=== PATIENT | male | born 1995 | race Caucasian/White ===

== ENCOUNTER 2021-07-01 14:57 | Observation (INO) | payer BC, MEDICAID, SELFPAY ==
[2021-07-01 15:10] VITALS: BP 157/96; PULSE 75; RESP 12; TEMP 36.8; O2SAT 98; BMI 33.2
--- NOTE | 2021-07-01 15:38 | ED.C_ITS ---
Documented by User: Yvette Gallagher PA-C 07/01/21 15:57 HPI - Psych General: Chief Complaint: Psychiatric Symptoms Stated Complaint: DEPRESSION Time Seen by Provider: 07/01/21 15:21 Source: patient Mode of arrival: EMS Limitations: no limitations History of Present Illness: HPI Narrative: 25-year-old male presents to the ER via EMS after verbal altercation with his where he threatened to kill himself. Patient reports he and his about 1 week ago and today she said she was going to go through the divorce. Patient reports during the argument he threatened to kill himself. Patient reports his then called family and the auto electrical technician who took patient to [facility] and told him they were going to 96 him. Patient told family he would voluntarily admit himself for evaluation versus being forced to. Patient reports he is not suicidal but said that out of anger. Patient reports he has had multiple chances to hurt himself but never would because he has 2 children to live for. Patient reports his father did remove all guns from the home however his family feels he needs evaluated anyway. Patient consents to safety at this time. Patient denies any history of depression. Patient does admit he has not slept in days but just due to his stressful situation. Patient would like to talk to someone about the rough time he is going through. MD complaint: feels depressed Onset (ago): week(s) Duration: intermittent History of same: No Context: significant life stressor Associated psychiatric symptoms: suicidal ideation Treatments prior to arrival: none Details of plan: denies a plan Review of Systems General: Reports: 10 or more systems reviewed and unremarkable except in HPI and below Physical Exam Const: COMMON NORMALS: no acute distress, average body habitus and patient oriented x3 GENERAL APPEARANCE: cooperative and comfortable HENMT: COMMON NORMALS: normocephalic HEAD & SCALP: normocephalic Eye: COMMON NORMALS: conjunctivae normal CONJUNCTIVA: Yes conjunctivae normal Neck/C-Spine: COMMON NORMALS: full ROM and no lymphadenopathy Resp: COMMON NORMALS: normal respiratory effort, No retractions and clear to auscultation bilaterally AUSCULTATION: clear to auscultation bilaterally, no rales, no rhonchi and no wheezes Cardio: COMMON NORMALS: regular rate and regular rhythm RATE: regular rate RHYTHM: regular rhythm GI: COMMON NORMALS: Normal to inspection, nondistended, normoactive bowel sounds present, Soft to palpation and non-tender PALPATION: Yes Soft to palpation Extremity: COMMON NORMALS: normal to inspection and full ROM Neuro: COMMON NORMALS: patient oriented x3, moves all extremities, no sensory deficits noted and gait normal Psych: COMMON NORMALS: mental status grossly normal, Normal thought process present, cooperative and normal affect ATTITUDE: No agitated and No aggressive THOUGHT PROCESS: Normal thought process present Skin: COMMON NORMALS: no rashes or lesions noted and no wounds GENERAL SKIN EXAM: no rashes or lesions noted Course ED course: Patient presents to the ER via EMS to be evaluated for depression. Patient made suicidal statements to his whom he was in an argument with. Patient denies suicidal ideation at this time but is willing to admit himself. Labs will be done and will speak with psychiatry. Consultations: Consultation #1: I spoke with Dr. Workman regarding this patient. Patient is willing to voluntarily admit himself and would like to talk to someone as he is dealing with a lot of stress in his life. Dr. Workman agrees to admission for this patient. Psych care set place. Time: 15:38 Vital Signs: Vital signs: Vital Signs Temperature 98 F 07/02/21 16:42 Pulse Rate 78 07/02/21 16:42 Respiratory Rate 18 07/02/21 16:42 Blood Pressure 143/87 07/02/21 16:42 Pulse Oximetry 97 07/02/21 16:42 MDM - Psych MDM Narrative: Medical decision making narrative: 25-year-old male presents to the ER via EMS after making suicidal statements to his . Patient has have been for the last week or so and during an argument patient said he might as well just kill himself. Patient's family and called the auto electrical technician and patient told his family he would voluntarily admit himself versus being forced. Patient denies suicidal thoughts at this time but does admit that he made the comments. Patient denies a plan. Patient reports he would never hurt himself because he has 2 children. Patient reports his family did take all the guns out of the home however they still would like him admitted to be evaluated. Patient does admit to not sleeping well for the last several days due to increased stressors in his life. Patient has no history of depression. We will do labs for admission. I did speak with Dr. Workman who agrees to accept the patient for evaluation. Patient does agree to voluntarily admit himself. Spoke with Dr. Gardner who will put in admission orders. Lab Data: Labs: Lab Results 07/01/21 07/01/21 07/01/21 16:00 16:00 16:30 WBC 13.7 10^3/uL H 10 ^3/uL (4.0-10.0) RBC 5.58 10^6/uL H 10 ^6/uL (4.1-5.3) Hgb 16.3 g/dL g/dL (11.7-16.6) Hct 48.8 % % (42.0-52.0) MCV 87.5 fl fl (80-94) MCH 29.2 pg pg (28.0-34.0) MCHC 33.4 g/dL g/dL (30.0-36.0) RDW 11.5 % L % (12.1-15.1) Plt Count 305 10^3/cmm 10^3 /cmm (130-400) MPV 10.5 fL H fL (7.4-10.4) Neut % (Auto) 68.5 % % Lymph % (Auto) 22.3 % % [place] % (Auto) 5.8 % % Eos % (Auto) 2.5 % % Baso % (Auto) 0.6 % % Neut # (Auto) 9.38 10^3/uL H 10 ^3/uL (1.8-7.7) Lymph # (Auto) 3.1 10^3/uL 10^3/ uL (0.8-4.8) [place] # (Auto) 0.8 10^3/uL 10^3/ uL (0.2-0.9) Eos # (Auto) 0.3 10^3/uL 10^3/ uL (0.0-0.8) Baso # (Auto) 0.1 10^3/uL 10^3/ uL (0.0-0.1) Nucleated RBC % (a uto) 0 % % Nucleated RBCs # 0.0 /100WBC /100W BC Sodium 141 mmol/L mmol/L (136-145) Potassium 4.0 mmol/L mmol/L (3.5-5.1) Chloride 106 mmol/L mmol/L (98-107) Carbon Dioxide 22 mmol/L mmol/L (22-29) Anion Gap 17.0 (5-19) BUN 8 mg/dL mg/dL (6-20) Creatinine 0.7 mg/dL mg/dL (0.7-1.2) GFR Calculation 135.3 mL/min H mL /min (90-130) Glucose 90 mg/dL mg/dL (65-115) Calculated Osmolal ity 290 mOsm/kg mOsm/ kg (285-295) Calcium 9.7 mg/dL mg/dL (8.5-10.5) Total Bilirubin 0.2 mg/dL mg/dL (0.15-1.2) AST 12 U/L U/L (0-40) ALT 18 U/L U/L (0-41) Alkaline Phosphata se 76 IU/L IU/L (40-130) Total Protein 7.0 g/dL g/dL (6.6-8.7) Albumin 4.5 g/dL g/dL (3.5-5.2) Globulin 2.5 g/dL g/dL (1.3-4.6) Urine Color Yellow (Yellow) Urine Appearance Clear (CLEAR) Urine pH 5 (5-7) Ur Specific Gravit y 1.020 (1.005-1.030) Urine Protein Neg (Negative) Urine Glucose (UA) Norm (Normal) Urine Ketones Negative (Negative) Urine Blood 2+ H (Negative) Urine Nitrate Negative (Negative) Urine Bilirubin Neg (Negative) Urine Urobilinogen Norm mg/dL mg/dL (Negative) Ur Leukocyte Amara ase Negative (Negative) Urine RBC 0-4 /hpf H /hpf (0-2) Urine WBC None /hpf /hpf (0-5) Ur Squamous Epith Cells None /hpf /hpf (0-5) Amorphous Sediment Not Reportable Urine Bacteria Trace /hpf /hpf (NONE) Salicylates < 0.3 mg/dL L mg/ dL (3-10) Urine Opiates Scre en Acetaminophen < 5.0 ug/mL L ug/ mL (10-30) Ur Barbiturates Sc reen Ur Phencyclidine S crn Ur Amphetamines Sc reen U Benzodiazepines Scrn Urine Cocaine Scre en U Marijuana (THC) Screen 07/01/21 16:30 WBC RBC Hgb Hct MCV MCH MCHC RDW Plt Count MPV Neut % (Auto) Lymph % (Auto) [place] % (Auto) Eos % (Auto) Baso % (Auto) Neut # (Auto) Lymph # (Auto) [place] # (Auto) Eos # (Auto) Baso # (Auto) Nucleated RBC % (a uto) Nucleated RBCs # Sodium Potassium Chloride Carbon Dioxide Anion Gap BUN Creatinine GFR Calculation Glucose Calculated Osmolal ity Calcium Total Bilirubin AST ALT Alkaline Phosphata se Total Protein Albumin Globulin Urine Color Urine Appearance Urine pH Ur Specific Gravit y Urine Protein Urine Glucose (UA) Urine Ketones Urine Blood Urine Nitrate Urine Bilirubin Urine Urobilinogen Ur Leukocyte Amara ase Urine RBC Urine WBC Ur Squamous Epith Cells Amorphous Sediment Urine Bacteria Salicylates Urine Opiates Scre en Negative ng/mL ng /mL (Negative) Acetaminophen Ur Barbiturates Sc reen Negative ng/mL ng /mL (Negative) Ur Phencyclidine S crn Negative ng/mL ng /mL (Negative) Ur Amphetamines Sc reen Negative ng/mL ng /mL (Negative) U Benzodiazepines Scrn Negative ng/mL ng /mL (Negative) Urine Cocaine Scre en Positive ng/mL H ng/mL (Negative) U Marijuana (THC) Screen Positive ng/mL H ng/mL (Negative) Critical Care Time Critical Care Time: Critical Care Time: No Discharge Plan Discharge Patient Disposition: Admitted As Inpatient Admit Provider: Vargas Workman Clinical Impression: Suicidal ideation Depression Qualifiers: Depression Type: reactive depression Qualified Code(s): F32.9 - Major depressive disorder, single episode, unspecified Condition: Stable Discharge Diet: Usual diet Discharge Activity: Resume usual activity Coding Level of Care Code ED Flower Shop Manager for g Fwd Exam Comprehensive Documented by User: Toy Gardner MD 07/07/21 21:44 HPI - Psych General: Chief Complaint: Psychiatric Symptoms Stated Complaint: DEPRESSION Time Seen by Provider: 07/01/21 15:21 Course Vital Signs: Vital signs: Vital Signs Temperature 98 F 07/02/21 16:42 Pulse Rate 78 07/02/21 16:42 Respiratory Rate 18 07/02/21 16:42 Blood Pressure 143/87 07/02/21 16:42 Pulse Oximetry 97 07/02/21 16:42 MDM - Psych MDM Narrative: Medical decision making narrative: I discussed this case with LACEY Mead. I reviewed documentation. Toy Gardner MD Emergency Medicine Lab Data: Labs: Lab Results 07/01/21 07/01/21 07/01/21 16:00 16:00 16:30 WBC 13.7 10^3/uL H 10 ^3/uL (4.0-10.0) RBC 5.58 10^6/uL H 10 ^6/uL (4.1-5.3) Hgb 16.3 g/dL g/dL (11.7-16.6) Hct 48.8 % % (42.0-52.0) MCV 87.5 fl fl (80-94) MCH 29.2 pg pg (28.0-34.0) MCHC 33.4 g/dL g/dL (30.0-36.0) RDW 11.5 % L % (12.1-15.1) Plt Count 305 10^3/cmm 10^3 /cmm (130-400) MPV 10.5 fL H fL (7.4-10.4) Neut % (Auto) 68.5 % % Lymph % (Auto) 22.3 % % [place] % (Auto) 5.8 % % Eos % (Auto) 2.5 % % Baso % (Auto) 0.6 % % Neut # (Auto) 9.38 10^3/uL H 10 ^3/uL (1.8-7.7) Lymph # (Auto) 3.1 10^3/uL 10^3/ uL (0.8-4.8) Providence # (Auto) 0.8 10^3/uL 10^3/ uL (0.2-0.9) Eos # (Auto) 0.3 10^3/uL 10^3/ uL (0.0-0.8) Baso # (Auto) 0.1 10^3/uL 10^3/ uL (0.0-0.1) Nucleated RBC % (a uto) 0 % % Nucleated RBCs # 0.0 /100WBC /100W BC Sodium 141 mmol/L mmol/L (136-145) Potassium 4.0 mmol/L mmol/L (3.5-5.1) Chloride 106 mmol/L mmol/L (98-107) Carbon Dioxide 22 mmol/L mmol/L (22-29) Anion Gap 17.0 (5-19) BUN 8 mg/dL mg/dL (6-20) Creatinine 0.7 mg/dL mg/dL (0.7-1.2) GFR Calculation 135.3 mL/min H mL /min (90-130) Glucose 90 mg/dL mg/dL (65-115) Calculated Osmolal ity 290 mOsm/kg mOsm/ kg (285-295) Calcium 9.7 mg/dL mg/dL (8.5-10.5) Total Bilirubin 0.2 mg/dL mg/dL (0.15-1.2) AST 12 U/L U/L (0-40) ALT 18 U/L U/L (0-41) Alkaline Phosphata se 76 IU/L IU/L (40-130) Total Protein 7.0 g/dL g/dL (6.6-8.7) Albumin 4.5 g/dL g/dL (3.5-5.2) Globulin 2.5 g/dL g/dL (1.3-4.6) Urine Color Yellow (Yellow) Urine Appearance Clear (CLEAR) Urine pH 5 (5-7) Ur Specific Gravit y 1.020 (1.005-1.030) Urine Protein Neg (Negative) Urine Glucose (UA) Norm (Normal) Urine Ketones Negative (Negative) Urine Blood 2+ H (Negative) Urine Nitrate Negative (Negative) Urine Bilirubin Neg (Negative) Urine Urobilinogen Norm mg/dL mg/dL (Negative) Ur Leukocyte Amara ase Negative (Negative) Urine RBC 0-4 /hpf H /hpf (0-2) Urine WBC None /hpf /hpf (0-5) Ur Squamous Epith Cells None /hpf /hpf (0-5) Amorphous Sediment Not Reportable Urine Bacteria Trace /hpf /hpf (NONE) Salicylates < 0.3 mg/dL L mg/ dL (3-10) Urine Opiates Scre en Acetaminophen < 5.0 ug/mL L ug/ mL (10-30) Ur Barbiturates Sc reen Ur Phencyclidine S crn Ur Amphetamines Sc reen U Benzodiazepines Scrn Urine Cocaine Scre en U Marijuana (THC) Screen 07/01/21 16:30 WBC RBC Hgb Hct MCV MCH MCHC RDW Plt Count MPV Neut % (Auto) Lymph % (Auto) [place] % (Auto) Eos % (Auto) Baso % (Auto) Neut # (Auto) Lymph # (Auto) [place] # (Auto) Eos # (Auto) Baso # (Auto) Nucleated RBC % (a uto) Nucleated RBCs # Sodium Potassium Chloride Carbon Dioxide Anion Gap BUN Creatinine GFR Calculation Glucose Calculated Osmolal ity Calcium Total Bilirubin AST ALT Alkaline Phosphata se Total Protein Albumin Globulin Urine Color Urine Appearance Urine pH Ur Specific Gravit y Urine Protein Urine Glucose (UA) Urine Ketones Urine Blood Urine Nitrate Urine Bilirubin Urine Urobilinogen Ur Leukocyte Amara ase Urine RBC Urine WBC Ur Squamous Epith Cells Amorphous Sediment Urine Bacteria Salicylates Urine Opiates Scre en Negative ng/mL ng /mL (Negative) Acetaminophen Ur Barbiturates Sc reen Negative ng/mL ng /mL (Negative) Ur Phencyclidine S crn Negative ng/mL ng /mL (Negative) Ur Amphetamines Sc reen Negative ng/mL ng /mL (Negative) U Benzodiazepines Scrn Negative ng/mL ng /mL (Negative) Urine Cocaine Scre en Positive ng/mL H ng/mL (Negative) U Marijuana (THC) Screen Positive ng/mL H ng/mL (Negative) Discharge Plan Discharge Patient Disposition: Admitted As Inpatient Admit Provider: Vargas Workman Clinical Impression: Suicidal ideation Depression Qualifiers: Depression Type: reactive depression Qualified Code(s): F32.9 - Major depressive disorder, single episode, unspecified Condition: Stable Discharge Diet: Usual diet Discharge Activity: Resume usual activity Coding Level of Care Code ED Flower Shop Manager for Christos Fwd Exam Comprehensive
[2021-07-01 16:12] LABS: Basophils # 0.1 10^3/uL (0.0-0.1); Basophils % 0.6 %; Eosinophils # 0.3 10^3/uL (0.0-0.8); Eosinophils % 2.5 %; Hematocrit 48.8 % (42.0-52.0); Hemoglobin 16.3 g/dL (11.7-16.6); Lymphocytes # 3.1 10^3/uL (0.8-4.8); Lymphocytes % 22.3 %; Mean Corpuscular HGB Conc 33.4 g/dL (30.0-36.0); Mean Corpuscular Hemoglobin 29.2 pg (28.0-34.0); Mean Corpuscular Volume 87.5 fl (80-94); Mean Platelet Volume 10.5 fL (7.4-10.4); Monocytes # 0.8 10^3/uL (0.2-0.9); Monocytes % 5.8 %; Neutrophils # 9.38 10^3/uL (1.8-7.7); Neutrophils % 68.5 %; Nucleated Red Blood Cells % 0 %; Platelet Count 305 10^3/cmm (130-400); Red Blood Count 5.58 10^6/uL (4.1-5.3); Red Cell Distribution Width 11.5 % (12.1-15.1); White Blood Count 13.7 10^3/uL (4.0-10.0)
[2021-07-01 16:36] LABS: Alanine Aminotransferase 18 U/L (0-41); Albumin Level 4.5 g/dL (3.5-5.2); Alkaline Phosphatase 76 IU/L (40-130); Aspartate Amino Transferase 12 U/L (0-40); Blood Urea Nitrogen 8 mg/dL (6-20); Calcium 9.7 mg/dL (8.5-10.5); Carbon Dioxide 22 mmol/L (22-29); Chloride 106 mmol/L (98-107); Globulin 2.5 g/dL (1.3-4.6); Glomerular Filtration Rate 135.3 mL/min (90-130); Glucose 90 mg/dL (65-115); Osmolality Calculated 290 mOsm/kg (285-295); Sodium 141 mmol/L (136-145); Total Bilirubin 0.2 mg/dL (0.15-1.2)
[2021-07-01 16:37] LABS: Acetaminophen < 5.0 ug/mL (10-30); Salicylate < 0.3 mg/dL (3-10)
[2021-07-01 17:22] LABS: Protein Urine Neg (Negative); Urine Appearance Clear (CLEAR); Urine Color Yellow (Yellow); pH Urine 5 (5-7)
[2021-07-01 17:23] LABS: Add Urine Culture? No; Add Urine Microscopic? YES; Bacteria Urine TRACE /hpf; Bilirubin Urine Neg (Negative); Blood Urine 2+ (Negative); Glucose Urine UA Norm (Normal); Ketones Urine Negative (Negative); Leukocyte Esterase Urine Negative (Negative); Nitrate Urine Negative (Negative); RBC Urine 0-4 /hpf (0-2); Urobilinogen Urine Norm (Negative)
[2021-07-01 17:42] LABS: Amphetamines Screen Urine Negative (Negative); Barbiturates Screen Urine Negative (Negative); Benzodiazepines Screen Urine Negative (Negative); Cocaine Screen Urine Positive (Negative); Opiate Screen Urine Negative (Negative); PCP Screen Urine Negative (Negative); THC Screen Urine Positive (Negative)
[2021-07-01 18:00] VITALS: BP 157/90; PULSE 73; RESP 14; TEMP 36.6; O2SAT 98
--- NOTE | 2021-07-01 18:22 | PC.NURSE ---
report to calvin on NPU
[2021-07-01 18:36] VITALS: BP 148/104; PULSE 70; RESP 16; TEMP 36.8; O2SAT 99
--- NOTE | 2021-07-01 19:17 | PC.NURSE ---
ADMISSION 25-YEAR-OLD MALE ADMITTED FROM ED FOR SI. PATIENT WAS BROUGHT IN BY EMS AFTER PATIENTS FAMILY REPORTED THAT HE THREATENED TO KILL HIMSELF AFTER HIS STATED SHE WAS GOING TO FILE FOR DIVORCE. PATIENT STATES HE IS NOT SUICIDAL AND ONLY SAID THAT OUT OF ANGER. PATIENT REPORTS HE HAS HAD MULTIPLE CHANCES TO HURT HIMSELF BUT NEVER WOULD BECAUSE HE HAS 2 CHILDREN TO LIVE FOR. NO HISTORY OF DEPRESSION OR PSYCH ISSUES. HAS NOT SLEPT DUE TO HIS STRESSFUL SITUATION AND IS WILLING TO BE ADMITTED TO TALK TO SOMEONE ABOUT THE ROUGH TIME HE IS GOING THROUGH. REPORTS USING COCAINE 1X ON NEW [place], USING MARIJUANA 1 X 2 DAYS AGO FOR THE INCREASED ANXIETY. DENIES ANY SI/HI, OR AVH. BAL ? NEGATIVE DOA ? COCAINE & THC [ End ]
[2021-07-01 20:23] VITALS: BP 140/92; PULSE 74; RESP 17; TEMP 36.8; O2SAT 99
[2021-07-02 06:00] VITALS: BP 129/75; PULSE 83; RESP 18; TEMP 36.4; O2SAT 97
--- NOTE | 2021-07-02 13:08 | NPU.GN ---
[facility] Group Topic: Group Discussion/ Choices General Mood of Group: Patient did not attend group. He wanted to sleep.
[2021-07-02 14:00] VITALS: BP 143/87; PULSE 78; RESP 18; TEMP 36.6; O2SAT 97
--- NOTE | 2021-07-02 14:47 | P.NPUHP_ITS ---
Providers/Chief Complaint Admitting Physician: Vargas Workman MD Chief Complaint: DEPRESSION HPI NPU History of Present Illness Brandt Gomez is a 25 year old male who presented to the emergency department with the following report: Chief Complaint: Psychiatric Symptoms Stated Complaint: DEPRESSION Time Seen by Provider: 07/01/21 15:21 Source: patient Mode of arrival: EMS Limitations: no limitations History of Present Illness: HPI Narrative: 25-year-old male presents to the ER via EMS after verbal altercation with his where he threatened to kill himself. Patient reports he and his about 1 week ago and today she said she was going to go through the divorce. Patient reports during the argument he threatened to kill himself. Patient reports his then called family and the professor of practice who took patient to town and told him they were going to 96 him. Patient told family he would voluntarily admit himself for evaluation versus being forced to. Patient reports he is not suicidal but said that out of anger. Patient reports he has had multiple chances to hurt himself but never would because he has 2 children to live for. Patient reports his father did remove all guns from the home however his family feels he needs evaluated anyway. Patient consents to safety at this time. Patient denies any history of depression. Patient does admit he has not slept in days but just due to his stressful situation. Patient would like to talk to someone about the rough time he is going through. complaint: feels depressed Onset (ago): week(s) Duration: intermittent History of same: No Context: significant life stressor Associated psychiatric symptoms: suicidal ideation Treatments prior to arrival: none Details of plan: denies a plan. He was admitted to the neuropsychiatric unit for definitive treatment of those issues. He presents today reporting that he has never been in a psychiatric hospital, he has never had outpatient services, he has never been on psychiatric medications. He reports that he vapes mostly but does smoke some cigarettes, as he is trying to stop smoking. He denies alcohol, marijuana, or any other illicit drug use. He has never been to rehab, never had a DUI. He reports that the reason why he is here, is reporting they were going to split, getting very upset over her suggesting that they were going to finally truly move in the direction of separation, and making comments that were based on his anger, anxiety, and not wanting to lose her, and he said he was going to kill himself. He reports he would never do that. He does not want to kill himself. He reports they have been for two years, but they have been together for five to six years. He reports they fight and bicker a lot. 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 He denies any history of suicide attempts or self-injurious behavior. He denies any need for medication intervention due to ongoing depression and anxiety. He reports he just needs to learn to deal with his stress better. He was open to a referral for a counselor to work through the way he manages stress. We discussed the risks, benefits, and alternatives of us reaching out to his family to see if they concur that he has not had a period of time of depression and thoughts to kill himself, and this was a kind of acting out moment to say that, and he understood and agreed to proceed as is documented in this note. PSYCHIATRIC HISTORY: As above. SUBSTANCE ABUSE HISTORY: As above. FAMILY HISTORY: There are no mental health or addiction issues on either side of the family, and no suicide attempts or completions in the family. DEVELOPMENTAL HISTORY: He does report that he did have spinal meningitis very early. He denies any issues with his mother?s or delivery of him. He met all developmental milestones on time. He denies any speech therapy, learning support, emotional support, or special education classes. PSYCHOSOCIAL HISTORY: He reports that his parents were together when he was born. He has a younger sister that is the product of that union. He reports his parents did not stay together however, but neither of them had any other children. He reports his childhood was great and he denied any emotional, physical, or sexual abuse. He denies any other traumas in his life. He reports he graduated from high school. He did get his [employer] as additional training. He is a heterosexual with his longest relationship being about six years. He has been the one time and reports that he has spoken to his since he has been here, and they talked about working on their relationship in some way. He has a 2-year-old and a 4-month-old, both boys at home. He has never been in the , endorses being Gnosticist. 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 He currently lives in a trailer with his and two children. LEGAL HISTORY: Denied. MEDICAL HISTORY: Denied. Meds NPU Home Medications Medication Instructions Recorded Confirmed Last Taken Type No Known Home Medications 07/01/21 07/01/21 Unknown History Allergies Allergy/AdvReac Type Severity Reaction Status Date / Time No Known Allergies Allergy Verified 07/01/21 15:10 Mental Status Exam MSE Comments: This is a well-nourished, well-developed, white male, in hospital scrubs, with appropriate grooming, and eye contact. No abnormal movements. Cooperative with exam in no acute distress. Speech was normal rate and volume. Mood described as good; affect congruent. Thought process, organized. Thought content: patient denied any suicidal or homicidal ideation, there were no delusions reported or noted, patient denied any auditory or visual hallucinations. Attention, concentration, and memory appear intact but were not formally tested. He is alert and oriented times three. Insight and judgment appear fair, impulse control appears fair. Vitals/I&O/Wt Last Vital Signs Temp 98 F 07/02/21 14:00 Pulse 78 07/02/21 14:00 Resp 18 07/02/21 14:00 BP 143/87 07/02/21 14:00 Pulse Ox 97 07/02/21 14:00 Weight last 48 hrs Weight 127.006 kg Data NPU : 07/01/21 16:00 07/01/21 16:00 A&P Assessment and plan (1) Suicidal ideation: Status: Resolved (2) Depression: Status: Acute Qualifiers: Depression Type: reactive depression Qualified Code(s): F32.9 - Major depressive disorder, single episode, unspecified (3) Marital/partner relational problem: Status: Acute (4) Adjustment disorder with mixed disturbance of emotions and conduct: Status: Acute Additional A&P Information This is a 25-year-old, white male, with adjustment disorder to his partner relational problems, who presents reporting that he does not have any suicidal tendencies, no desire to hurt himself, and requests to be discharged. RECOMMENDATION AND PLAN: 1. Continue current medication. 2. Encourage individual, group, and milieu therapy. 3. Continue q-15 minute checks for safety. 4. We will get collateral information from the family on safety, and if there are no concerns, we will likely discharge later today. Involuntary Hold Information 96 Hour Hold: 96 Hour Involuntary Admission: No Attestations NPU Medical Necessity Statement*: Inpatient hospitalization is medically necessary and the clinically appropriate intervention, at this time. We will monitor medications and make changes as indicated. We will evaluate for safety and if domenic king has safety concerns, he will be in the hospital for over two midnights. If not, we will discharge later today. Coding Level of Care Code Acute Merchandising Assistant for Miya Fwd Diagnoses Suicidal ideation R45.851 Depression F32.9 Depression Type: reactive depression Marital/partner relational problem Z63.0 Adjustment disorder with mixed disturbance of emotions and conduct F43.25
--- NOTE | 2021-07-02 15:50 | P.NPUDS_ITS ---
Diagnoses at Discharge Discharge Diagnosis (1) Suicidal ideation: Status: Resolved (2) Depression: Status: Acute Qualifiers: Depression Type: reactive depression Qualified Code(s): F32.9 - Major depressive disorder, single episode, unspecified (3) Marital/partner relational problem: Status: Acute (4) Adjustment disorder with mixed disturbance of emotions and conduct: Status: Acute Reason for Visit Reason for Visit: DEPRESSION Brief History: History of Present Illness Brandt Gomez is a 25 year old male who presented to the emergency department with the following report: Chief Complaint: Psychiatric Symptoms Stated Complaint: DEPRESSION Time Seen by Provider: 07/01/21 15:21 Source: patient Mode of arrival: EMS Limitations: no limitations History of Present Illness:?? HPI Narrative: 25-year-old male presents to the ER via EMS after verbal altercation with his where he threatened to kill himself.? Patient reports he and his about 1 week ago and today she said she was going to go through the divorce.? Patient reports during the argument he threatened to kill himself.? Patient reports his then called family and the rn critical care who took patient to [facility] and told him they were going to 96 him.? Patient told family he would voluntarily admit himself for evaluation versus being forced to.? Patient reports he is not suicidal but said that out of anger.? Patient reports he has had multiple chances to hurt himself but never would because he has 2 children to live for.? Patient reports his father did remove all guns from the home however his family feels he needs evaluated anyway.? Patient consents to safety at this time.? Patient denies any history of depression.? Patient does admit he has not slept in days but just due to his stressful situation.? Patient would like to talk to someone about the rough time he is going through. MD complaint: feels depressed Onset (ago): week(s) Duration: intermittent History of same: No Context: significant life stressor Associated psychiatric symptoms: suicidal ideation Treatments prior to arrival: none Details of plan: denies a plan. He was admitted to the neuropsychiatric unit for definitive treatment of those issues. He presents today reporting that he has never been in a psychiatric hospital, he has never had outpatient services, he has never been on psychiatric medications. He reports that he vapes mostly but does smoke some cigarettes, as he is trying to stop smoking. He denies alcohol, marijuana, or any other illicit drug use. He has never been to rehab, never had a DUI. He reports that the reason why he is here, is reporting they were going to split, getting very upset over her suggesting that they were going to finally truly move in the direction of separation, and making comments that were based on his anger, anxiety, and not wanting to lose her, and he said he was going to kill himself. He reports he would never do that. He does not want to kill himself. He reports they have been for two years, but they have been together for five to six years. He reports they fight and bicker a lot. 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 He denies any history of suicide attempts or self-injurious behavior. He denies any need for medication intervention due to ongoing depression and anxiety. He reports he just needs to learn to deal with his stress better. He was open to a referral for a counselor to work through the way he manages stress. We discussed the risks, benefits, and alternatives of us reaching out to his family to see if they concur that he has not had a period of time of depression and thoughts to kill himself, and this was a kind of acting out moment to say that, and he understood and agreed to proceed as is documented in this note. PSYCHIATRIC HISTORY: As above. SUBSTANCE ABUSE HISTORY: As above. FAMILY HISTORY: There are no mental health or addiction issues on either side of the family, and no suicide attempts or completions in the family. DEVELOPMENTAL HISTORY: He does report that he did have spinal meningitis very early. He denies any issues with his mother?s or delivery of him. He met all developmental milestones on time. He denies any speech therapy, learning support, emotional support, or special education classes. PSYCHOSOCIAL HISTORY: He reports that his parents were together when he was born. He has a younger sister that is the product of that union. He reports his parents did not stay together however, but neither of them had any other children. He reports his childhood was great and he denied any emotional, physical, or sexual abuse. He denies any other traumas in his life. He reports he graduated from high school. 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 He is a heterosexual with his longest relationship being about six years. He has been the one time and reports that he has spoken to his since he has been here, and they talked about working on their relationship in some way. He has a 2-year-old and a 4-month-old, both boys at home. He has never been in the , endorses being Yazdanism. 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 His CDL lasts for three to four years. He currently lives in a trailer with his and two children. LEGAL HISTORY: Denied. MEDICAL HISTORY: Denied. Hospital Course Hospital Course He quickly acclimated to the individual, group and milieu therapy provided. There were some domestic issues and recent break-up conflict that created a concerning situation. He is not interested in starting medication but was open to referral for therapy. Patient comes to be evaluated for safety. There were no issues noted and collateral information family identify that he would benefit from therapy and an outlet for his stressors but concerns for lethality was not endorsed by family. They agree with the safe to return home. He was able to contract for safety outside the hospital prior to discharge. During the hospitalization, patient had routine laboratory studies which were within normal limits except for few outliers. Additionally there was a general medical evaluation which was also within normal limits and revealed no new acute processes. Discharge Summary: At the time of discharge, he denied psychosis or lethality. Mood and anxiety were well managed. Patient endorsed a plan to avoid all drugs of abuse and follow-up with the aftercare recommendations of the treatment team. Patient was evaluated and deemed to be absent credible lethality, and had achieved the maximum benefit from an inpatient hospitalization, so was discharged. Involuntary Hold Information 96 Hour Hold: 96 Hour Involuntary Admission: No Mental Status Exam MSE Comments: This is a well-nourished, well-developed, white male, in hospital scrubs, with appropriate grooming, and eye contact. No abnormal movements. Cooperative with exam in no acute distress. Speech was normal rate and volume. Mood described as good; affect congruent. Thought process, organized. Thought content: patient denied any suicidal or homicidal ideation, there were no delusions reported or noted, patient denied any auditory or visual hallucinations. Attention, concentration, and memory appear intact but were not formally tested. He is alert and oriented times three. Insight and judgment appear fair, impulse control appears fair. Discharge Data Data Completed and Pending: Labs from last 24 hours 07/01/21 07/01/21 07/01/21 16:30 16:30 16:00 WBC RBC Hgb Hct MCV MCH MCHC RDW Plt Count MPV Neut % (Auto) Lymph % (Auto) [place] % (Auto) Eos % (Auto) Baso % (Auto) Neut # (Auto) Lymph # (Auto) [place] # (Auto) Eos # (Auto) Baso # (Auto) Nucleated RBC % (a uto) Nucleated RBCs # Sodium 141 Potassium 4.0 Chloride 106 Carbon Dioxide 22 Anion Gap 17.0 BUN 8 Creatinine 0.7 GFR Calculation 135.3 H Glucose 90 Calculated Osmolal ity 290 Calcium 9.7 Total Bilirubin 0.2 AST 12 ALT 18 Alkaline Phosphata se 76 Total Protein 7.0 Albumin 4.5 Globulin 2.5 Urine Color Yellow Urine Appearance Clear Urine pH 5 Ur Specific Gravit y 1.020 Urine Protein Neg Urine Glucose (UA) Norm Urine Ketones Negative Urine Blood 2+ H Urine Nitrate Negative Urine Bilirubin Neg Urine Urobilinogen Norm Ur Leukocyte Amara ase Negative Urine RBC 0-4 H Urine WBC None Ur Squamous Epith Cells None Amorphous Sediment Not Reportable Urine Bacteria Trace Salicylates < 0.3 L Urine Opiates Scre en Negative Acetaminophen < 5.0 L Ur Barbiturates Sc reen Negative Ur Phencyclidine S crn Negative Ur Amphetamines Sc reen Negative U Benzodiazepines Scrn Negative Urine Cocaine Scre en Positive H U Marijuana (THC) Screen Positive H 07/01/21 16:00 WBC 13.7 H RBC 5.58 H Hgb 16.3 Hct 48.8 MCV 87.5 MCH 29.2 MCHC 33.4 RDW 11.5 L Plt Count 305 MPV 10.5 H Neut % (Auto) 68.5 Lymph % (Auto) 22.3 [place] % (Auto) 5.8 Eos % (Auto) 2.5 Baso % (Auto) 0.6 Neut # (Auto) 9.38 H Lymph # (Auto) 3.1 [place] # (Auto) 0.8 Eos # (Auto) 0.3 Baso # (Auto) 0.1 Nucleated RBC % (a uto) 0 Nucleated RBCs # 0.0 Sodium Potassium Chloride Carbon Dioxide Anion Gap BUN Creatinine GFR Calculation Glucose Calculated Osmolal ity Calcium Total Bilirubin AST ALT Alkaline Phosphata se Total Protein Albumin Globulin Urine Color Urine Appearance Urine pH Ur Specific Gravit y Urine Protein Urine Glucose (UA) Urine Ketones Urine Blood Urine Nitrate Urine Bilirubin Urine Urobilinogen Ur Leukocyte Amara ase Urine RBC Urine WBC Ur Squamous Epith Cells Amorphous Sediment Urine Bacteria Salicylates Urine Opiates Scre en Acetaminophen Ur Barbiturates Sc reen Ur Phencyclidine S crn Ur Amphetamines Sc reen U Benzodiazepines Scrn Urine Cocaine Scre en U Marijuana (THC) Screen Vitals: Last Vital Signs Temp 98 F 07/02/21 14:00 Pulse 78 07/02/21 14:00 Resp 18 07/02/21 14:00 BP 143/87 07/02/21 14:00 Pulse Ox 97 07/02/21 14:00 Discharge Plan Discharge Patient Disposition: Home Condition: Fair Prescriptions: Continued No Known Home Medications 0RF Discharge Orders: Discharge Order (Routine); Ordered 07/02/21 Ordered By: Vargas Workman Referrals: [facility] [place] [facility] [Outside] - 4-7 days (Catrachita Salazar from [facility] [place] will call to schedule a follow up. If you don't get a call within one week then call and ask for Catrachita.) Panchito Jean, [facility] [Emergency Department] - Discharge Diet: Usual diet Discharge Activity: Resume usual activity Patient Instructions: Opioid Safety Discharge Attestations NPU Time Spent in Discharge Care*: greater than 30 min Specific Discharge Activities: Specific discharge activities: educating patient, discussing with correctional counselor/case manager/social workers/dc planners, documenting/other paperwork and evaluating patient/reviewing data Coding Level of Care Code Acute Chg FW DC note Diagnoses Suicidal ideation R45.851 Depression F32.9 Depression Type: reactive depression Marital/partner relational problem Z63.0 Adjustment disorder with mixed disturbance of emotions and conduct F43.25
[2021-07-02 16:42] VITALS: BP 143/87; PULSE 78; RESP 18; TEMP 36.6; O2SAT 97
== END 2021-07-02 17:35 | disposition home or self-care (01) ==
LOC: ER 15:56 → NP 18:04
PROVIDERS: Admitting Provider Psychiatry & Neurology Psychiatry; Emergency Provider Physician Assistant; Visit Provider Psychiatry & Neurology Psychiatry
DX: R45.851 Suicidal ideations (principal); F32.9 Major depressive disorder, single episode, unspecified; Z63.0 Problems in relationship with spouse or partner; F43.25 Adjustment disorder with mixed disturbance of emotions and conduct; F17.210 Nicotine dependence, cigarettes, uncomplicated
CPT/HCPCS: 80053; 80306; 80307; 81001; 85025; 97165; 99285; G0378